=== PATIENT | female | born 1975 ===

== ENCOUNTER 2017-02-20 12:30 | Emergency (ER) | payer MEDICAID, OTHER ==
[2017-02-20 12:48] VITALS: BMI 39.8
[2017-02-20 12:54] VITALS: TEMP 98.3
--- NOTE | 2017-02-20 12:55 | C.PDOC ---
History Of Present Illness 41 year old patient is brought to the ED by ambulance for evaluation of left ankle pain and swelling developed [employer] MIDWIFE after sustained mechanical fall. Patient reports she fell outside of her hour 1 hour prior to arrival, twisting her ankle. Otherwise, Patient denies head injury, LOC, syncope, headache, dizziness , neck pain, CP, back pain, denies deformity, numbness, weakness to Left leg. AT the time of evaluation, appears comfortable, not in any apparent distress. Time Seen by Provider: 02/20/17 12:50 Chief Complaint (Nursing): Lower Extremity Problem/Injury History Per: Patient History/Exam Limitations: no limitations Onset/Duration Of Symptoms: Hrs (1 hour prior to arrival) Current Symptoms Are (Timing): Still Present Severity: Mild Pain Scale Rating Of: 3 Recent travel outside of the [place]: No - Ankle/Foot Description Of Injury: Fell Past Medical History Reviewed: Historical Data, Nursing Documentation, Vital Signs Vital Signs: Last Vital Signs Temp 98.3 F 02/20/17 12:47 Pulse 75 02/20/17 13:51 Resp 78 H 02/20/17 13:51 BP 148/88 02/20/17 13:51 Pulse Ox 18 L 02/20/17 13:51 Family History: States: Unknown Family Hx Review Of Systems Except As Marked, All Systems Reviewed And Found Negative. Constitutional: Negative for: Fever, Other (head injury) Musculoskeletal: Positive for: Other (left ankle pain and swelling) Neurological: Negative for: Weakness, Numbness Physical Exam - Physical Exam Appears: Non-toxic, No Acute Distress Skin: Warm, Dry Head: Atraumatic, Normacephalic Neck: Normal ROM, No Midline Cervical Tenderness, No Paracervical Tenderness, No Step Off Deformity, Supple Chest: Symmetrical Cardiovascular: Rhythm Regular Back: No Vertebral Tenderness Extremity: Tenderness (left ankle: mild tenderness; trace edema to the lateral malleolus; slight tenderness over the proximal fibula; no skin changes. no palpable deformity, no neurovascular deficits.), No Calf Tenderness, Capillary Refill (<2 seconds), No Deformity, No Swelling Neurological/Psych: Oriented x3, Normal Motor, Normal Sensation, Normal Reflexes Gait: Steady ED Course And Treatment O2 Sat by Pulse Oximetry: 98 (room air) Pulse Ox Interpretation: Normal - Other Rad Left tib/fib X-Ray: Interpreted by Me, Viewed By Me Interpretation: no acute fx Left ankle X-Ray: Interpreted by Me, Viewed By Me Interpretation: no acute fx Left foot X-Ray: Interpreted by Me, Viewed By Me Interpretation: no acute fx Progress Note: Plan: Tylenol, Ultram, Left ankle x-ray, left foot x-ray, left tibia fibula x-ray. On re-evluation, pt is afebrile, hemodynamicaly stable. Non-toxic. Head: AT/NC. Neck: (-) midline tenderness. Left LE: exam c/w ankle sprain. NO deformity, no neurovascular deficits. Omaging review and appears without acute fx or dislocation. Air cast applied to Left ankle. Crutches offere to pt. Pt advised on course of ds and ref. to f/u with Ortho in 2-3 days for re-eavl. return if any new changes. Disposition Counseled Patient/Family Regarding: Studies Performed, Diagnosis, Need For Followup, Rx Given - Disposition Referrals: Clinic,Med Surg [Primary Care Provider] - [facility] [Outside] [facility] [place] [Outside] Disposition: HOME/ ROUTINE Disposition Time: 13:20 Condition: STABLE Additional Instructions: RICE-REST, ICE, COMPRESSION, ELEVATION PAIN MEDICATION NEED FOLLOW UP WITH ORTHOPEDIST IN 2-3 DAYS FOR RE-EVALUATION. RETURN TO ED IF ANY WORSENING OR NEW CHANGES. 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 - Scribe Statement The provider has reviewed the documentation as recorded by the Scribe Rain Zhao All medical record entries made by the Scribe were at my direction and personally dictated by me. I have reviewed the chart and agree that the record accurately reflects my personal performance of the history, physical exam, medical decision making, and the department course for this patient. I have also personally directed, reviewed, and agree with the discharge instructions and disposition.
[2017-02-20 13:52] VITALS: BP 148/88; PULSE 75; RESP 78
--- NOTE | 2017-02-20 14:14 | RAD ---
PROCEDURE: Radiographs of the left tibia and fibula. HISTORY: injury COMPARISON: None available. TECHNIQUE: Frontal and lateral views obtained. FINDINGS: BONES: No fracture or destructive lesion. JOINT SPACES: Unremarkable. OTHER FINDINGS: None. IMPRESSION: Unremarkable radiographs of the left tibia and fibula.
--- NOTE | 2017-02-20 14:18 | RAD ---
PROCEDURE: Left Ankle Radiographs. HISTORY: injury COMPARISON: Comparison made with concurrent left tibia- fibula FINDINGS: BONES: Normal. No fracture. JOINTS: Normal. No osteoarthritis. Ankle mortise maintained. Talar dome intact SOFT TISSUES: Mild soft tissue swelling overlying the lateral malleolus OTHER FINDINGS: None. IMPRESSION: Mild soft tissue swelling overlying the lateral malleolus
--- NOTE | 2017-02-20 14:20 | RAD ---
PROCEDURE: Left foot dated 02/20/2017 HISTORY: injury COMPARISON: Correlation made with concurrent radiographs of the left ankle. FINDINGS: BONES: No evidence of acute displaced fracture nor dislocation. Osseous structures appear intact. JOINTS: Normal. SOFT TISSUES: Normal. OTHER FINDINGS: None. IMPRESSION: Normal left foot radiographs.
[2017-02-20 17:57] VITALS: O2SAT 98
== END 2017-02-20 13:54 | disposition home or self-care (01) ==
LOC: C.ER 12:30 → SUPCPDRO 12:30 → C.ER 13:54
DX: S93.402A Sprain of unspecified ligament of left ankle, initial encounter (principal); W01.0XXA Fall on same level from slipping, tripping and stumbling without subsequent striking against object, initial encounter; Y92.008 Other place in unspecified non-institutional (private) residence as the place of occurrence of the external cause

== ENCOUNTER 2018-10-24 07:34 | Emergency (ER) | payer MEDICAID, OTHER ==
[2018-10-24 07:35] VITALS: BMI 39.8
[2018-10-24 07:56] VITALS: TEMP 98.7
--- NOTE | 2018-10-24 08:12 | C.PDOC ---
History Of Present Illness 43 y/o female pt presents to the ER c/o new onset of left-sided neck pain for x2 days. Associated sx includes pain worse with movement and unable to fully turn the neck to the left side. Pt says she woke up with these symptoms and now they have worsen. Pt is noncompliant with blood pressure medication, last dose was x3 days ago. Pt denies weakness, numbness, or trauma. Pt did not take any medications for pain. NEW ONSET L NECK PAIN X 2 DAYS. PS AWOKE W SX, NOW WORSE TODAY. WORSE W NECK MOVEMENT, UNABLE TO FULL TURN TOWARDS LEFT SIDE. NO ASSOC WEAK/NUMB. NO TRAUMA. NO PAIN MEDS TRIED. NONCOMPLIANT W BP MEDS, LAST DOSE 3 DAYS AGO EXAM MILD DIST NONTOXIC HEENT ATRAUM NECK UNABLE TO L LAT ROTATE, LIMITED FULL R LAT ROTATE; +SPASM L LAT NECK/UPPER BACK. LIMITED FLEX/EXT NEURO NO FOCAL DEF SKIN INTACT GAIT WNL REMAINDER NEG Time Seen by Provider: 10/24/18 07:58 Chief Complaint (Nursing): Headache History Per: Patient History/Exam Limitations: no limitations Onset/Duration Of Symptoms: Days (x2) Current Symptoms Are (Timing): Still Present Past Medical History Reviewed: Historical Data, Nursing Documentation, Vital Signs Vital Signs: Last Vital Signs Temp 98.7 F 10/24/18 07:39 Pulse 77 10/24/18 07:39 Resp 18 10/24/18 07:39 BP 188/112 H 10/24/18 07:39 Pulse Ox 99 10/24/18 07:39 - Medical History PMH: HTN Family History: States: Unknown Family Hx - Social History Hx Alcohol Use: No Hx Substance Use: No - Immunization History Hx Tetanus Toxoid Vaccination: Yes Hx Influenza Vaccination: No Hx Pneumococcal Vaccination: No Review Of Systems Except As Marked, All Systems Reviewed And Found Negative. Constitutional: Negative for: Other (trauma) Musculoskeletal: Positive for: Neck Pain (left side; pain worse with movement and decreased in motion due to pain) Neurological: Negative for: Weakness, Numbness Physical Exam - Physical Exam Appears: Non-toxic, In Acute Distress (mild ) Skin: Warm, Dry, Other (skin intact ) Head: Atraumatic, Normacephalic Eye(s): bilateral: Normal Inspection, PERRL, EOMI Ear(s): Bilateral: Normal Nose: Normal Oral Mucosa: Moist Throat: Normal Neck: Decreased ROM (unable to left lateral rotate; limited full right lateral rotate ), Other (spasm left lateral neck; limited flex/ext ) Cardiovascular: Rhythm Regular Respiratory: Other (NARD) Back: Other (spasm upper back ) Extremity: Normal ROM (x4) Neurological/Psych: Oriented x3, Normal Speech, No Other (focal deficit ) Gait: Other (within normal limits) ED Course And Treatment - Laboratory Results Result Diagrams: 10/24/18 08:36 10/24/18 08:36 ECG: Interpreted By Me ECG Rhythm: Sinus Rhythm ECG Interpretation: Normal Rate From EC O2 Sat by Pulse Oximetry: 99 (RA) Pulse Ox Interpretation: Normal - CT Scan/US CT dissection Other Rad Studies (CT/US): Read By Radiologist, Radiology Report Reviewed CT/US Interpretation: Accession No. : [id number]. Patient Name / ID : [facility]SE[facility] / [id number]. Exam Date : 10/24/2018 09:41:20 ( Approved ). Study Comment : Sex / Age : F / 43Y. Creator : Pura Lucas. Dictator : Caitlin Arias MD. Greenhouse Grower : Water Project Manager : Caitlin Arias MD. Approve r2 : Report Date : 10/24/2018 09:56:45. My Comment : . Date of service: 10/24/2018. CT Dissection protocol. Indication: UNCONTROLL HTN, L NECK/BACK PAIN. Technique: Contiguous axial images were obtained through the chest/abdomen without and with intravenous contrast enhancement utilizing dissection protocol technique. Sagittal and coronal reconstructions were generated and reviewed. This CT exam was performed using 1 or more of the following dose reduction techniques: Automated exposure control, adjustment of the MAA and/or kV according to patient size, and/or use of iterative reconstruction technique. Radiation dose (DLP): 2194.56 MGy-cm. Contrast: 100 mL Visipaque 320. Findings: Visualized portions of the inferior thyroid gland appear unremarkable. The mediastinal and hilar vascular structures appear within normal limits. The heart appears within normal limits of size. Subcentimeter mediastinal lymph nodes, nonspecific. No evidence of thoracic aorta dissection or aneurysmal dilatation. Mild pulmonary venous congestion. Bibasilar atelectasis/infiltrates. Small to moderate bilateral pleural effusions. No pneumothorax. There is normal course and contour of the abdominal aorta and common iliac arteries. The liver appears within normal limits of size and morphology. The pancreas, spleen, adrenal glands, and gallbladder appear unremarkable. The kidneys enhance symmetrically without evidence of hydronephrosis or obstructing renal calculi. No enlarged abdominal lymphadenopathy is identified. The stomach is nondistended. Included upper abdominal bowel loops appear within normal limits of caliber without evidence of obstruction. Diverticulosis without CT evidence of acute diverticulitis. The incompletely visualized portions of the appendix appear of caliber. No definite free air. Degenerative changes. Impression: Subcentimeter mediastinal lymph nodes, nonspecific. No evidence of thoracic aorta dissection or aneurysmal dilatation. There is normal course and contour of the abdominal aorta and common iliac arteries. Mild pulmonary venous congestion. Bibasilar atelectasis/infiltrates. Small to moderate bilateral pleural effusions. Diverticulosis without CT evidence of acute diverticulitis. Progress Note: Plans: -- Chem labs. -- blood work. -- EKG. -- CT scan. -- morphine. -- valium Progress - Re-Evaluation Re-evaluation Note: 10/24/18 10:27 BP IMPROVED SP PAIN RX CT REPORT REVIEWED. [facility], ADVISED NEED TO BE COMPLIANT W BP MEDS - Data Reviewed Data Reviewed: Lab, Diagnostic imaging, EKG, Old records Disposition Counseled Patient/Family Regarding: Studies Performed, Diagnosis, Need For Followup, Rx Given - Disposition [facility]errals: [facility]] [facility] [Outside] [facility] [Other] Disposition: HOME/ ROUTINE Disposition Time: 10:28 Condition: IMPROVED Prescriptions: diaZEpam [Valium] 5 mg PO TID PRN #15 tab PRN Reason: Muscle Spasm Ibuprofen [Motrin] 600 mg PO Q6 #30 tab Metoprolol Succinate XL [Toprol XL] 50 mg PO DAILY #14 tab Instructions: Torticollis (DC) Forms: [employer] (Nauruan), Work Excuse Print Language: AMHARIC - Clinical Impression Clinical Impression: Torticollis, acute, Uncontrolled hypertension - Scribe Statement The provider has reviewed the documentation as recorded by the Scribe Susan Lovelace Provider Attestation: All medical record entries made by the Scribe were at my direction and pers onally dictated by me. I have reviewed the chart and agree that the record accurately reflects my personal performance of the history, physical exam, medical decision making, and the department course for this patient. I have also personally directed, reviewed, and agree with the discharge instructions and disposition.
[2018-10-24 08:40] LABS: BASO # 0.1 K/uL (0.0-0.2); BASO % 0.6 % (0.0-2.0); EOS # 0.2 K/uL (0.0-0.7); EOS % 1.5 % (0.0-4.0); HEMOGLOBIN 11.5 g/dL (11.0-16.0); LYMPH # 2.2 K/uL (1.0-4.3); LYMPH % 19.9 % (20.0-40.0); MEAN CELL VOLUME 86.4 fL (81.0-99.0); MEAN CORPUSCULAR HEMOGLOBIN 27.9 pg (27.0-31.0); MEAN CORPUSCULAR HGB CONC 32.3 g/dL (33.0-37.0); MEAN PLATELET VOLUME 8.6 fL (7.2-11.7); MONO # 0.9 K/uL (0.0-0.8); MONO % 8.3 % (0.0-10.0); NEUT # 7.7 K/uL (1.8-7.0); NEUT % 69.7 % (50.0-75.0); RBC 4.1 Mil/uL (3.80-5.20); RED CELL DISTRIBUTION WIDTH 14.3 % (11.5-14.5); WHITE BLOOD COUNT 11.1 K/uL (4.8-10.8)
[2018-10-24 08:52] LABS: BLOOD UREA NITROGEN 11 mg/dL (7-17); CALCIUM 8.5 mg/dl (8.6-10.4); GFR NON-AFRICAN AMERICAN > 60
[2018-10-24] MEDS ORDERED: Labetalol 25mg/5ml Syringe IVP STA (09:06)
[2018-10-24 09:12] VITALS: PULSE 67; RESP 20
[2018-10-24] MEDS ORDERED: Iodixanol 320 MG/ML 100 ML BOTTLE IV ONE (09:19)
--- NOTE | 2018-10-24 10:17 | CT ---
Date of service: 10/24/2018 CT Dissection protocol Indication: UNCONTROLL HTN, L NECK/BACK PAIN Technique: Contiguous axial images were obtained through the chest/abdomen without and with intravenous contrast enhancement utilizing dissection protocol technique. Sagittal and coronal reconstructions were generated and reviewed. This CT exam was performed using 1 or more of the following dose reduction techniques: Automated exposure control, adjustment of the MAA and/or kV according to patient size, and/or use of iterative reconstruction technique. Radiation dose (DLP): 2194.56 MGy-cm. Contrast: 100 mL Visipaque 320 Findings: Visualized portions of the inferior thyroid gland appear unremarkable. The mediastinal and hilar vascular structures appear within normal limits. The heart appears within normal limits of size. Subcentimeter mediastinal lymph nodes, nonspecific. No evidence of thoracic aorta dissection or aneurysmal dilatation. Mild pulmonary venous congestion. Bibasilar atelectasis/infiltrates. Small to moderate bilateral pleural effusions. No pneumothorax. There is normal course and contour of the abdominal aorta and common iliac arteries. The liver appears within normal limits of size and morphology. The pancreas, spleen, adrenal glands, and gallbladder appear unremarkable. The kidneys enhance symmetrically without evidence of hydronephrosis or obstructing renal calculi. No enlarged abdominal lymphadenopathy is identified. The stomach is nondistended. Included upper abdominal bowel loops appear within normal limits of caliber without evidence of obstruction. Diverticulosis without CT evidence of acute diverticulitis. The incompletely visualized portions of the appendix appear of caliber. No definite free air. Degenerative changes. Impression: Subcentimeter mediastinal lymph nodes, nonspecific. No evidence of thoracic aorta dissection or aneurysmal dilatation. There is normal course and contour of the abdominal aorta and common iliac arteries. Mild pulmonary venous congestion. Bibasilar atelectasis/infiltrates. Small to moderate bilateral pleural effusions. Diverticulosis without CT evidence of acute diverticulitis.
[2018-10-24] MEDS ORDERED: Oxycodone/Acetaminophen 5/325 mg Tab PO STA (10:26)
[2018-10-24 10:32] VITALS: BP 162/92
[2018-10-24 10:33] VITALS: O2SAT 99
--- NOTE | 2018-10-25 20:05 | CARD ---
APPROVED REPORT Date of service: 10/24/2018 EKG Measurement Heart [id number] <Conclusion> Normal sinus rhythm Nonspecific T wave abnormality Abnormal ECG
== END 2018-10-24 10:59 | disposition home or self-care (01) ==
LOC: C.ER 07:34
DX: M43.6 Torticollis (principal); I10 Essential (primary) hypertension
CPT/HCPCS: 71275; 74175; 80048; 81025; 85025; 93005; 96374; 99285; J2270; Q9967

== ENCOUNTER 2018-11-28 12:48 | Outpatient (CLI) | payer MEDICAID | END 2018-11-28 12:49 | disposition home or self-care (01) | LOC: C.MAMMO 12:48 | DX: Z12.31 Encounter for screening mammogram for malignant neoplasm of breast (principal) ==